=== PATIENT | male | born 2000 | race Caucasian/White ===

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

== ENCOUNTER 2022-11-03 13:03 | Emergency (ER) | payer OTHER ==
[~2022-11-03] VITALS: Ht 177.8 cm; Wt 72.6 kg
[~2022-11-03 13:03] MED LIST changes: +SEPTDS PO
== END 2022-11-03 13:35 | disposition home or self-care (01) ==
LOC: ED 13:03
DX: S16.1XXA Strain of muscle, fascia and tendon at neck level, initial encounter (principal); M54.6 Pain in thoracic spine; Z98.890 Other specified postprocedural states; Z90.89 Acquired absence of other organs; X50.1XXA Overexertion from prolonged static or awkward postures, initial encounter; Y93.89 Activity, other specified; Y92.89 Other specified places as the place of occurrence of the external cause; Y99.8 Other external cause status

== ENCOUNTER 2023-09-26 18:31 | Emergency (ER) | payer OTHER ==
[~2023-09-26] VITALS: Ht 177.8 cm; Wt 72.6 kg
[2023-09-26] MEDS ORDERED: Bacitracin Zinc 14 GM TUBE T ONE (18:50)
[2023-09-26] MEDS ORDERED: Tdap Vaccine 0.5 ML SYR (Adult Vaccine) IM ONE (18:55)
== END 2023-09-26 19:22 | disposition home or self-care (01) ==
LOC: ED 18:31
DX: S61.231A Puncture wound without foreign body of left index finger without damage to nail, initial encounter (principal); Z98.890 Other specified postprocedural states; Z90.89 Acquired absence of other organs; W22.8XXA Striking against or struck by other objects, initial encounter; Y93.89 Activity, other specified; Y92.009 Unspecified place in unspecified non-institutional (private) residence as the place of occurrence of the external cause; Y99.8 Other external cause status

== ENCOUNTER 2024-10-24 08:19 | Emergency (ER) | payer OTHER ==
[~2024-10-24] VITALS: Wt 72.6 kg
[2024-10-24] MEDS ORDERED: Dicyclomine Hydrochloride 10 MG CAP PO ONE (08:35)
[2024-10-24] MEDS ORDERED: Ondansetron Hydrochloride 4 MG TAB SL ONE (08:35)
[2024-10-24] MEDS ORDERED: SIMETHICONE 80 MG TAB PO ONE (08:40)
[2024-10-24] MEDS ORDERED: Ondansetron4 MG PO (09:40)
== END 2024-10-24 09:43 | disposition home or self-care (01) ==
LOC: ED 08:19
DX: R10.84 Generalized abdominal pain (principal); R11.0 Nausea; Z79.2 Long term (current) use of antibiotics; Z96.22 Myringotomy tube(s) status